=== PATIENT | male | born 1985 | race Caucasian/White ===

== ENCOUNTER 2018-03-09 17:20 | Emergency (ER) | payer MEDICAID ==
[~2018-03-09] VITALS: Ht 180.3 cm; Wt 86.4 kg
[2018-03-09 17:31] VITALS: Ht 180.3 cm; Wt 86.4 kg
[2018-03-09] MEDS ORDERED: BACTRIM DS TABL1 TAB PO (19:20)
[2018-03-09 19:30] VITALS: BP 121/87
== END 2018-03-09 19:30 | disposition home or self-care (01) ==
LOC: D.ER 17:20
DX: S01.511A Laceration without foreign body of lip, initial encounter (principal); W22.8XXA Striking against or struck by other objects, initial encounter; Y93.89 Activity, other specified; Y92.019 Unspecified place in single-family (private) house as the place of occurrence of the external cause